=== PATIENT | female | born 1970 | race Caucasian/White ===

== ENCOUNTER → 2016-08-20 08:39 | Outpatient (CLI) | payer MEDICAID ==
[2015-12-12 11:10] VITALS: BMI 25.1
[~2016-08-20 08:39] MED LIST: AMBIEN10 MG PO; ARMOUR THYROID30 MG PO; CLONAZEPAM2 MG/TAB PO; FLAXSEED OIL1000 MG PO; GLUCOPHAGE500 MG PO; HYDROCODON-ACE1 EAC9 PO; IBUPROFEN800 MG PO; PERCOCET 10/3251 TA1 PO; PROZAC40 MG PO; RESTORIL22.5 MG PO; SOMA350 MG PO; SUPER B COMPLE150 MG PO; VITAMIN D31000 UNIT PO
== END | disposition home or self-care (01) ==
LOC: D.CT
DX: R20.0 Anesthesia of skin (principal)